=== PATIENT | male | born 1955 | race Caucasian/White ===

== ENCOUNTER → 2016-11-14 | Outpatient (CLI) | payer BC ==
--- NOTE | 2016-11-14 13:13 | CT ---
EXAMINATION TYPE: CT ChestAbdPelvis w con DATE OF EXAM: 11/14/2016 12:10 PM INDICATION: colon CA COMPARISON: 07/28/2016 CT DLP: 576.8 mGycm CONTRAST: Performed with Oral Contrast and with IV Contrast, patient injected with 100 mL of Omnipaque 300. TECHNIQUE: Axial images at 5 mm thick sections. Reconstructed images in the coronal plane. Delayed images through the kidneys. FINDINGS: CT CHEST: Portion of the thyroid visualized is normal. Patchy areas of pneumonitis are the right apex. This appears slightly greater in number from the [facility] size comparison of previous areas are stable There is a 1.4 cm pretracheal lymph node near the level of the esperanza The ascending aorta diameter at the level of the main pulmonary artery is 3.4 cm. The main pulmonary artery diameter at the bifurcation is 2.[address] ABDOMEN: Liver: Normal Spleen: Normal Pancreas: Normal Adrenal glands: The adrenal glands are normal. Gallbladder: Normal Kidneys: No masses are evident. No hydronephrosis is present. There is a 1.8 cm cyst on the posteri or left kidney measuring 11 couple of tiny cortical renal cysts are present on the left kidney. Tiny cortical renal cysts may be present on the inferior right kidney Delayed images were obtained throug h the kidneys, which remain unremarkable. Aorta: Vascular calcification is within the aorta. Inferior vena cava: Normal. CT PELVIS: Loops of bowel within the abdomen and pelvis are normal. There are loops of bowel which are incom pletely distended or lack oral contrast limiting their evaluation. Fecal debris is within the distal colon. Distal to the thecal is a rectosigmoid anastomosis. Appendix: Normal as visualized. Urinary bladder: Normal. Genitourinary structures: Osseous structures: No suspicious lytic or sclerotic lesions. IMPRESSIONS: 1. Cortical renal cyst. 2. Enlarged 1.4 cm pretracheal lymph node which is somewhat larger than prior. 3. Increasing areas of pneumonitis at the right apex.
== END | disposition home or self-care (01) ==
LOC: RADCTMAIN 11:27
PROVIDERS: ATTEND Internal Medicine Hematology & Oncology
DX: C18.9 Malignant neoplasm of colon, unspecified (principal); N28.1 Cyst of kidney, acquired; R60.0 Localized edema; J18.9 Pneumonia, unspecified organism
CPT/HCPCS: 71260; 74177; Q9967

== ENCOUNTER 2022-06-07 06:02 | Day surgery (SDC) | payer MEDICARE ==
[2022-06-05 12:57] VITALS: BMI 18.5
[~2022-06-07 06:02] MED LIST: ALBUTEROL NEB (CONC) 2.5 MG/0.5 ML INHALATION ONE; ATROPINE SULFATE 0.4 MG/ML 1 ML VIAL IM ONE; LIDOCAINE 2% (PF) 20 MG/ML 5 ML VIAL INHALATION ONE; LIDOCAINE VISCOUS 300 MG/15 ML CUP MUCOUS MEM ONE; SODIUM CHLORIDE 0.9% 1,000 ML IV SCH
[2022-06-07] MEDS ORDERED: PROPOFOL 10 MG/ML 20 ML VIAL IV ONE (07:38)
[2022-06-07] MEDS ORDERED: SUCCINYLCHOLINE CHLORIDE 200 MG/10 ML VIAL IV ONE (07:38)
[2022-06-07] MEDS ORDERED: MIDAZOLAM 2 MG/2 ML VIAL ONE (07:38)
[2022-06-07] MEDS ORDERED: LIDOCAINE 2% INJ 20 MG/ML (2 ML VIAL) ONE (07:38)
[2022-06-07] MEDS ORDERED: fentaNYL (PF) 50 MCG/ML 2 ML AMP ONE (07:38)
[2022-06-07] MEDS ORDERED: PHENYLEPHRINE-0.9% NACL SYG 1,000 MCG/10 ML SYRINGE ONE (07:38)
--- NOTE | 2022-06-07 07:53 | CT ---
EXAMINATION TYPE: CT Chest [facility] Protocol CT DLP: 627 mGycm, Automated exposure control for dose reduction was used. DATE OF EXAM: 06/07/2022 7:26 AM COMPARISON: CT chest abdomen and pelvis 11/14/2016. CLINICAL INDICATION:Male, 67 years old with history of NAVIGATIONAL BRONCHOSCOPY WITH DR FLANAGAN; Pulmo nary nodule, mass. Reported history of colon cancer. TECHNIQUE: Multiple axial images were obtained through the chest. Inspiration and expiration imaging was obtained. Sagittal and coronal reformats were created for review. Contrast used: None. Oral contrast used: None. FINDINGS: LUNGS/ PLEURA: Spiculated right lower lobe mass with heterogenous calcifications measures 5.9 x 5.5 c m (series 6, image 49). 6.6 x 3.7 cm mass in the left lower lobe with heterogenous calcification and extension into the left hilum (series 6, image 31). Additional 5.9 x 3.0 cm mass in the right major f issure abutting the right hilum with heterogenous calcification (series 6, image 41). Numerous pulmon hunter nodules demonstrated throughout the lungs. Index lesions include left upper lobe 1.9 x 1.5 cm nod ule (series 6, image 24), left lower lobe 1.5 x 1.3 cm nodule (series 6, image 46). Patchy groundglas s opacity demonstrated within the anterior right upper lobe (series 6, image 27). Biapical pleural-pa renchymal scarring. No pneumothorax. Trace right pleural effusion. AIRWAY: There is soft tissue density demonstrated within the right mainstem bronchus body representin g invasion (series 5, image 28). Obstruction of the right middle lobe bronchus and left lower lobe br onchus with soft tissue. Trace secretions demonstrated within the distal trachea. HEART: Size within normal limits. No pericardial effusion. Coronary artery calcifications. MEDIASTINUM/HILUM: Conglomerate adenopathy demonstrated within both hilum and mediastinum. Distinct p retracheal metastasis measuring up to 2.5 cm with heterogenous calcifications. VASCULATURE: No aortic aneurysm. Atherosclerotic calcification of the aorta and its branches MUSCULOSKELETAL: No acute osseous abnormalities. No aggressive osseous lesions. SOFT TISSUES/LYMPH NODES: Unremarkable. LOWER NECK: No significant findings. UPPER ABDOMEN: Heterogenous hyperattenuating bilateral adrenal metastasis with the left measuring 5.3 x 4.0 cm and the right measuring 7.3 x 2.6 cm. Left renal cysts with largest measuring up to 3.1 cm. Marginal increase in size of left hepatic cyst measuring 1.7 cm. IMPRESSION: Multiple pulmonary masses and nodules identified with largest in the right lower lobe as described ab ove. Conglomerate mediastinal and hilar adenopathy. Bilateral adrenal metastasis. There is invasion/o bstruction of the right middle lobe and left lower lobe bronchi. Additionally there is invasion into the right mainstem bronchus. Findings are most consistent with metastasis.
[2022-06-07 08:27] VITALS: TEMP 97.4
[2022-06-07 09:14] VITALS: RESP 18
[2022-06-07 09:39] VITALS: BP 118/79; PULSE 90
--- NOTE | 2022-06-07 14:33 | OP ---
OPERATIVE REPORT PULMONARY/CRITICAL CARE PROCEDURE NOTE PROCEDURES PERFORMED: Navigational bronchoscopy, airway examination, therapeutic lavage, subcarinal needle biopsies, endobronchial biopsies bilaterally in the distal left mainstem and right mainstem. PREOPERATIVE DIAGNOSIS: Rule out lung cancer. POSTOPERATIVE DIAGNOSIS: Rule out lung cancer. OPERATORS: 1. Dr. Bolton. 2. Dr. Jauregui. The patient's procedure took place in room #1. There were informed consent and universal time-out. ANESTHESIA: 1. Dr. Poe was the anesthesiologist. 2. Mai Echols was the BROAD[employer]AND ENGINEER. The procedure was done with general anesthesia. DESCRIPTION OF PROCEDURE: After the patient was anesthetized and on the ventilator, the bronchoscope was inserted through the bronchoscope adapter connected to the endotracheal tube. The trachea looked relatively normal. Tracheal esperanza was sharp. Of note was the fact that in the proximal right mainstem, there was a large tumor. We could get past the tumor and see the right upper lobe and its 3 segments, right middle lobe and its 2 segments, and right lower lobe and its 5 segments. On the left side, there was significant distortion to the distal left mainstem, and it was difficult getting past the obvious endobronchial lesion in the distal left mainstem. Both sides looked very abnormal. We did endobronchial biopsies in the distal left mainstem and endobronchial biopsies in the proximal right mainstem and also needle biopsies in the subcarinal region. The patient tolerated the procedure well. We got good sampling on all 3 locations. There was minimal bleeding. We ensured hemostasis, and afterwards, the bronchoscope was withdrawn. The patient will be recovered. There was no immediate complication. No chest x-ray is necessary. MMODL / IJN: [id number] /
== END 2022-06-07 10:40 | disposition home or self-care (01) ==
LOC: ORWHC2ENDO 06:02
PROVIDERS: ATTEND Internal Medicine Critical Care Medicine
DX: R91.8 Other nonspecific abnormal finding of lung field (principal); R59.1 Generalized enlarged lymph nodes; C79.72 Secondary malignant neoplasm of left adrenal gland; C79.71 Secondary malignant neoplasm of right adrenal gland; C18.9 Malignant neoplasm of colon, unspecified; C41.9 Malignant neoplasm of bone and articular cartilage, unspecified; Z87.891 Personal history of nicotine dependence; J44.9 Chronic obstructive pulmonary disease, unspecified; Z87.01 Personal history of pneumonia (recurrent); Z92.3 Personal history of irradiation; Z86.19 Personal history of other infectious and parasitic diseases; K21.9 Gastro-esophageal reflux disease without esophagitis; Z79.899 Other long term (current) drug therapy; Z80.0 Family history of malignant neoplasm of digestive organs; Z80.42 Family history of malignant neoplasm of prostate; Z80.1 Family history of malignant neoplasm of trachea, bronchus and lung
CPT/HCPCS: 88305; 88342; 88341; 71250; 31629; 31625; J2250; J0330; J3010; J2370; J2704; J2001

== ENCOUNTER → 2022-06-07 | Day surgery (SDC) | payer BC, MEDICARE ==
[2022-05-30 15:31] VITALS: BMI 18.5
== END ==
LOC: ORWHC2ENDO 05:57
PROVIDERS: ATTEND Internal Medicine Critical Care Medicine
DX: R91.1 Solitary pulmonary nodule (principal); Z53.9 Procedure and treatment not carried out, unspecified reason